=== PATIENT | male | born 1970 | race Caucasian/White ===

== ENCOUNTER 2017-01-14 13:48 | Observation (INO) | payer OTHER ==
[~2017-01-14] VITALS: Ht 182.9 cm; Wt 105.0 kg
[~2017-01-14 13:48] MED LIST: CLIN150 PO; SULF-154 PO; VALA500 PO
[2017-01-14 13:50] VITALS: BP 139/99; PULSE 103; RESP 20; TEMP 97.7; O2SAT 95
--- NOTE | 2017-01-14 14:18 | PD ---
HPI Chief Complaint: Chest Pain Time Seen by Provider: 14:17 Travel History International Travel<30 days: No Contact w/Intl Traveler<30days: No Traveled to known affect area: No History of Present Illness HPI 46-year-old male came to the emergency room with history of chest pain on the left side. Patient says the pain has been there for past 5 days. Current pain level is 5 out of 10. He says that the pain got really bad when he coughs deep. No history of worsening of the pain upon deep breaths. Describes the pain as a dull ache with no radiation. No history of fever. Vital signs are stable. His brother had a quadruple bypass 2 months ago. His brother is a year or 2 older than him. Patient smokes cigars. [facility] Past Medical History Narrative Medical List of his past medical, surgical, social or family history is reviewed from the nursing note. 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 Reported Meds & Prescriptions Reported Meds & Active Scripts Active Reported Hydrocodone-Acetaminophen 7.5-325 mg Tab 1 Tab PO TID PRN Narrative Medication List of his home medications reviewed from the nursing note. Review of Systems Except as stated in HPI: all other systems reviewed are Neg Physical Exam Narrative GENERAL: Awake, alert, moderate distress SKIN: Warm and dry. HEAD: Atraumatic. Normocephalic. EYES: Pupils equal and round. No scleral icterus. No injection or drainage. ENT: No nasal bleeding or discharge. Mucous membranes pink and moist. NECK: Trachea midline. No JVD. CARDIOVASCULAR: Regular rate and rhythm. No murmur appreciated. RESPIRATORY: No accessory muscle use. Clear to auscultation. Breath sounds equal bilaterally. GASTROINTESTINAL: Abdomen soft, non-tender, nondistended. Hepatic and splenic margins not palpable. MUSCULOSKELETAL: No obvious deformities. No clubbing. No cyanosis. No edema. NEUROLOGICAL: Awake and alert. No obvious cranial nerve deficits. Motor grossly within normal limits. Normal speech. PSYCHIATRIC: Appropriate mood and affect; insight and judgment normal. Data Data Last Documented VS Vital Signs Date Time Temp Pulse Resp B/P Pulse Ox O2 Delivery O2 Flow Rate FiO2 01/14/17 18:34 18 01/14/17 17:12 72 139/96 99 Room Air 01/14/17 13:50 97.7 Orders Electrocardiogram (01/14/17 ) Basic Metabolic Panel (Bmp) (01/14/17 14:28) Ckmb (Isoenzyme) Profile (01/14/17 14:28) Complete Blood Count With Diff (01/14/17 14:28) D-Dimer (01/14/17 14:28) Magnesium (Mg) (01/14/17 14:28) Prothrombin Time / Inr (Pt) (01/14/17 14:28) Act Partial Throm Time (Ptt) (01/14/17 14:28) Troponin I (01/14/17 14:28) Chest, Single Ap (01/14/17 14:28) Ecg Monitoring (01/14/17 14:28) Bilateral Bp Monitoring (01/14/17 14:28) Iv Access Insert/Monitor (01/14/17 14:28) Oximetry (01/14/17 14:28) Oxygen Administration (01/14/17 14:28) Sodium Chloride 0.9% Flush (Ns Flush) (01/14/17 14:30) Aspirin Chew (Aspirin Chew) (01/14/17 14:45) Morphine Inj (Morphine Inj) (01/14/17 14:45) Ketorolac Inj (Toradol Inj) (01/14/17 17:30) Ct Pulmonary Angiogram (01/14/17 ) Nitroglycerin Sl (Nitrostat Sl) (01/14/17 18:45) Iohexol 350 Inj (Omnipaque 350 Inj) (01/14/17 19:07) Admit Order (Ed Use Only) (01/14/17 19:30) Labs Laboratory Tests Test 01/14/17 17:05 White Blood Count 6.5 TH/MM3 Red Blood Count 5.01 MIL/MM3 Hemoglobin 16.3 GM/DL Hematocrit 46.5 % Mean Corpuscular Volume 92.9 FL Mean Corpuscular Hemoglobin 32.6 PG Mean Corpuscular Hemoglobin 35.0 % Concent Red Cell Distribution Width 14.1 % Platelet Count 138 TH/MM3 Mean Platelet Volume 10.2 FL Neutrophils (%) (Auto) 54.8 % Lymphocytes (%) (Auto) 32.4 % Monocytes (%) (Auto) 9.6 % Eosinophils (%) (Auto) 2.4 % Basophils (%) (Auto) 0.8 % Neutrophils # (Auto) 3.6 TH/MM3 Lymphocytes # (Auto) 2.1 TH/MM3 Monocytes # (Auto) 0.6 TH/MM3 Eosinophils # (Auto) 0.2 TH/MM3 Basophils # (Auto) 0.0 TH/MM3 CBC Comment DIFF FINAL Differential Comment Prothrombin Time 10.0 SEC Prothromb Time International 0.9 RATIO Ratio Activated Partial 25.4 SEC Thromboplast Time D-Dimer Quantitative (PE/DVT) 0.52 MG/L FEU Sodium Level 141 MEQ/L Potassium Level 4.4 MEQ/L Chloride Level 103 MEQ/L Carbon Dioxide Level 28.7 MEQ/L Anion Gap 9 MEQ/L Blood Urea Nitrogen 15 MG/DL Creatinine 0.98 MG/DL Estimat Glomerular Filtration 82 ML/MIN Rate Random Glucose 94 MG/DL Calcium Level 8.9 MG/DL Magnesium Level 2.4 MG/DL Total Creatine Kinase 68 U/L Troponin I LESS THAN 0.02 NG/ML MDM Medical Decision Making Medical Screen Exam Complete: Yes Emergency Medical Condition: Yes Medical Record Reviewed: Yes Interpretation(s) Twelve-lead EKG was reviewed by me. Normal sinus rhythm, normal axis, nonspecific ST-T wave changes. Rate of 80 bpm. Differential Diagnosis ACS, non-STEMI, nonspecific chest pain, musculoskeletal pain Narrative Course 4:23 PM awaiting for the blood test results. Chest x-rays done and within normal limits. Patient was given 2 baby aspirin's. Given the risk factor of smoking and family history I have expressed to him my concern from cardiac disease standpoint. Even if his blood test is negative he'll be admitted to the chest pain center for stress test. 5:40 PM patient occasionally while to send the blood test. Awaiting for the blood test result. I did discuss with the patient about him staying in the chest pain center to rule out ACS if everything is within normal limits. He understands. Case was signed over to the oncoming ER physician. Procedures EKG Prior to Arrival: No Scripts Azithromycin (Zithromax Z-Luis Daniel)250 Mg [id number] Mg PO DIRECTED #1 DSPK Ref 0 500 MG (2 tabs) day 1, then 1 tab days 2-5. Prov:Bradford Palma 01/15/17 Yudelka Castellanos MD Jan 14, 2017 14:18
[2017-01-14] MEDS ORDERED: SODIUM CHLORIDE 0.9% FLUSH 5 ML FLUSH IVF PRN ×2 (14:30→21:15)
[2017-01-14] MEDS ORDERED: MORPHINE SULFATE 4 MG/ML INJ IV PUSH ONE ×2 (14:45→22:15)
[2017-01-14] MEDS ORDERED: ASPIRIN 81 MG CHEW TAB CHEW ONE (14:45)
[2017-01-14 14:53] VITALS: BP_SYST 131; BP_SYST 132; BP_DIAS 81; BP_DIAS 86
--- NOTE | 2017-01-14 14:58 | RADRPT ---
EXAM DATE/TIME: 01/14/2017 14:35 [facility] COMPARISON: No previous studies available for comparison. INDICATIONS : Shortness of breath. MEDICAL HISTORY : None. SURGICAL HISTORY : None. ENCOUNTER: Initial ACUITY: 4 - 6 days PAIN SCORE: 0/10 LOCATION: Bilateral chest FINDINGS: A single view of the chest demonstrates the lungs to be symmetrically aerated without evidence of mas s, infiltrate or effusion. The cardiomediastinal contours are unremarkable. Osseous structures are intact. CONCLUSION: No evidence of acute cardiopulmonary disease. Felipe Selby MD on January 14, 2017 at 14:56 Board Certified Radiologist. This report was verified electronically.
[2017-01-14 15:08] VITALS: RESP 20; O2SAT 98
[2017-01-14 17:12] VITALS: BP 139/96; PULSE 72; RESP 20; O2SAT 99
[2017-01-14 17:20] LABS: AUTOMATED NEUTROPHIL # 3.6 TH/MM3 (1.8-7.7); BASOPHIL % 0.8 % (0.0-2.0); EOSINOPHIL # 0.2 TH/MM3 (0-0.4); EOSINOPHIL % 2.4 % (0.0-4.0); HEMATOCRIT 46.5 % (39.0-51.0); HEMO FLAGS DIFF FINAL; LYMPH % 32.4 % (9.0-44.0); LYMPHOCYTE # 2.1 TH/MM3 (1.0-4.8); MEAN CELL VOLUME 92.9 FL (80.0-100.0); MEAN CORPUSCULAR HEMOGLOBIN 32.6 PG (27.0-34.0); MONO % 9.6 % (0.0-8.0); NEUT % 54.8 % (16.0-70.0); PLATELET COUNT 138 TH/MM3 (150-450); RED BLOOD COUNT 5.01 MIL/MM3 (4.50-5.90); RED CELL DISTRIBUTION WIDTH 14.1 % (11.6-17.2); WHITE BLOOD COUNT 6.5 TH/MM3 (4.0-11.0)
[2017-01-14] MEDS ORDERED: KETOROLAC TROMETHAMINE 30 MG/ML (IVP) VIAL IV PUSH ONE (17:30)
[2017-01-14 17:33] LABS: APTT (PATIENT) 25.4 SEC (24.3-30.1); INTERNATIONAL NORMALIZED RATIO 0.9 RATIO
[2017-01-14 17:48] LABS: ANION GAP 9 MEQ/L (5-15); BICARBONATE 28.7 MEQ/L (21.0-32.0); BLOOD UREA NITROGEN 15 MG/DL (7-18); CHLORIDE 103 MEQ/L (98-107); GLOMERULAR FILTRATION RATE 82 ML/MIN (>89); MAGNESIUM 2.4 MG/DL (1.5-2.5); POTASSIUM 4.4 MEQ/L (3.5-5.1); SODIUM (NA) 141 MEQ/L (136-145)
[2017-01-14 17:57] LABS: CREATINE KINASE 68 U/L (39-308)
[2017-01-14] MEDS ORDERED: HYDR-3580 PO (18:04)
--- NOTE | 2017-01-14 18:19 | PD ---
Physical Exam Narrative Received sign out from previous team to follow up labs and admit to chest pain center. 46yo M with left sided chest pain for 5 days. +SOB. Pt has not had any similar chest pain or sob before. Labs reviewed, no leukocytosis. Mild thrombocytopenia. Troponin negative. D-dimer is elevated at 0.52. Pt denies any history of PE/DVT, recent surgery or immobilization. CT angio ordered to r/ o PE. CXR negative. CT angio showed no PE but a 6mm lung nodule on right lung. Informed pt to follow up with outpatient CT scan in 6 months. Also showed ground glass opacity that may be pneumonitis. Instructed pt to inform PMD for pulmonary follow up. Pt denies smoking cig but is a cigar smoker. 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 Pt has not had similar chest pain or recent work up for chest pain. Pt will be admitted to chest pain center for serial EKG and cardiac enzyme. Pt agreed with plan. Data Data Last Documented VS Vital Signs Date Time Temp Pulse Resp B/P Pulse Ox O2 Delivery O2 Flow Rate FiO2 01/14/17 18:34 18 01/14/17 17:12 72 139/96 99 Room Air 01/14/17 13:50 97.7 Orders Electrocardiogram (01/14/17 ) Basic Metabolic Panel (Bmp) (01/14/17 14:28) Ckmb (Isoenzyme) Profile (01/14/17 14:28) Complete Blood Count With Diff (01/14/17 14:28) D-Dimer (01/14/17 14:28) Magnesium (Mg) (01/14/17 14:28) Prothrombin Time / Inr (Pt) (01/14/17 14:28) Act Partial Throm Time (Ptt) (01/14/17 14:28) Troponin I (01/14/17 14:28) Chest, Single Ap (01/14/17 14:28) Ecg Monitoring (01/14/17 14:28) Bilateral Bp Monitoring (01/14/17 14:28) Iv Access Insert/Monitor (01/14/17 14:28) Oximetry (01/14/17 14:28) Oxygen Administration (01/14/17 14:28) Sodium Chloride 0.9% Flush (Ns Flush) (01/14/17 14:30) Aspirin Chew (Aspirin Chew) (01/14/17 14:45) Morphine Inj (Morphine Inj) (01/14/17 14:45) Ketorolac Inj (Toradol Inj) (01/14/17 17:30) Ct Pulmonary Angiogram (01/14/17 ) Nitroglycerin Sl (Nitrostat Sl) (01/14/17 18:45) Iohexol 350 Inj (Omnipaque 350 Inj) (01/14/17 19:07) Admit Order (Ed Use Only) (01/14/17 19:30) Labs Laboratory Tests Test 01/14/17 17:05 White Blood Count 6.5 TH/MM3 Red Blood Count 5.01 MIL/MM3 Hemoglobin 16.3 GM/DL Hematocrit 46.5 % Mean Corpuscular Volume 92.9 FL Mean Corpuscular Hemoglobin 32.6 PG Mean Corpuscular Hemoglobin 35.0 % Concent Red Cell Distribution Width 14.1 % Platelet Count 138 TH/MM3 Mean Platelet Volume 10.2 FL Neutrophils (%) (Auto) 54.8 % Lymphocytes (%) (Auto) 32.4 % Monocytes (%) (Auto) 9.6 % Eosinophils (%) (Auto) 2.4 % Basophils (%) (Auto) 0.8 % Neutrophils # (Auto) 3.6 TH/MM3 Lymphocytes # (Auto) 2.1 TH/MM3 Monocytes # (Auto) 0.6 TH/MM3 Eosinophils # (Auto) 0.2 TH/MM3 Basophils # (Auto) 0.0 TH/MM3 CBC Comment DIFF FINAL Differential Comment Prothrombin Time 10.0 SEC Prothromb Time International 0.9 RATIO Ratio Activated Partial 25.4 SEC Thromboplast Time D-Dimer Quantitative (PE/DVT) 0.52 MG/L FEU Sodium Level 141 MEQ/L Potassium Level 4.4 MEQ/L Chloride Level 103 MEQ/L Carbon Dioxide Level 28.7 MEQ/L Anion Gap 9 MEQ/L Blood Urea Nitrogen 15 MG/DL Creatinine 0.98 MG/DL Estimat Glomerular Filtration 82 ML/MIN Rate Random Glucose 94 MG/DL Calcium Level 8.9 MG/DL Magnesium Level 2.4 MG/DL Total Creatine Kinase 68 U/L Troponin I LESS THAN 0.02 NG/ML MDM Supervised Visit with ONEL: No Diagnosis Primary Impression: Chest pain Qualified Code: R07.9 - Chest pain, unspecified type Admitting Information Admitting Physician Requests: Chelsea Camarillo 12, 2017 18:19
[2017-01-14] MEDS ORDERED: NITROGLYCERIN 0.4 MG SL 25 TABS/BTL SL ONE (18:45)
[2017-01-14] MEDS ORDERED: IOHEXOL 350 MG/ML 10 ML VIAL (for RAD DIAG) IV ONE (19:07)
--- NOTE | 2017-01-14 19:18 | RADRPT ---
EXAM DATE/TIME: 01/14/2017 18:59 [facility] COMPARISON: No previous studies available for comparison. INDICATIONS : Chest pain for five days. IV CONTRAST: 65 cc Omnipaque 350 (iohexol) IV RADIATION DOSE: 23.74 CTDIvol (mGy) MEDICAL HISTORY : None SURGICAL HISTORY : None. ENCOUNTER: Initial ACUITY: 4 - 6 days PAIN SCALE: 5/10 LOCATION: Bilateral chest TECHNIQUE: Volumetric scanning of the chest was performed using a pulmonary embolism protocol MIP images were re constructed. Using automated exposure control and adjustment of the mA and/or kV according to patien t size, radiation dose was kept as low as reasonably achievable to obtain optimal diagnostic quality images. FINDINGS: PULMONARY ARTERIES: No filling defects are seen in the pulmonary arteries through the segmental level. LUNGS: Diffuse mild groundglass opacities. There is a 6 mm nodule in the anterior segment of the right upper lobe. PLEURAE: There is no pleural thickening or pleural effusion. MEDIASTINUM: There is good visualization of the great vessels of the middle mediastinum. No evidence of mediastin al or hilar adenopathy/mass. MUSCULOSKELETAL: Within normal limits for patient age. MISCELLANEOUS: The visualized upper abdominal organs demonstrate no acute abnormality. CONCLUSION: 1. No pulmonary embolus. 2. Diffuse groundglass opacities of both lungs, nonspecific but a low-grade pneumonitis would be in t he differential. 3. 6 mm indeterminate nodule of the right midlung. 6 month followup noncontrast chest CT is recommend ed for recheck. Felipe Selby MD on January 14, 2017 at 19:15 Board Certified Radiologist. This report was verified electronically.
[2017-01-14 19:45] VITALS: BP 139/79; PULSE 69; RESP 24; TEMP 97.7; O2SAT 97
[2017-01-14 21:16] VITALS: BP 144/71; PULSE 68; RESP 22; O2SAT 98
[2017-01-14 22:44] LABS: CREATINE KINASE 55 U/L (39-308)
[2017-01-15 00:11] VITALS: BP 140/81; PULSE 61; RESP 21; TEMP 97.8; O2SAT 98
[2017-01-15 00:17] LABS: CREATINE KINASE 60 U/L (39-308)
[2017-01-15 06:51] VITALS: PULSE 65
[2017-01-15 08:03] VITALS: BP 143/85; PULSE 63; RESP 14; TEMP 97.6; O2SAT 94
[2017-01-15] MEDS ORDERED: RESP: ALBUTEROL 2.5 MG/IPRATROPIUM 0.5 MG NEB (PRN) INH (08:30)
[2017-01-15] MEDS ORDERED: RESP: ALBUTEROL 2.5 MG/IPRATROPIUM 0.5 MG NEB (SCH) INH ONE (08:30)
[2017-01-15 08:57] VITALS: O2SAT 95
[2017-01-15] MEDS ORDERED: SODIUM CHLORIDE 0.9% FLUSH 5 ML FLUSH IVF SCH (09:00)
[2017-01-15] MEDS ORDERED: KETOROLAC TROMETHAMINE 30 MG/ML (IVP) VIAL IVP ONE (09:00)
--- NOTE | 2017-01-15 09:29 | HHI.HP ---
[facility] Primary Care Physician Edis Howard Jr, MD Chief Complaint Chest pain History of Present Illness This is a 46-year-old male that presents to ED via private vehicle complaining of 5 days a constant central chest discomfort. Describes it as an ache. He states that when he coughs the pain intensifies as a sharp discomfort. It also is worsened when he tries to lean forward. He states he is also had a cough for 5 days. The first couple days had a whitish colored mucus but has since been nonproductive. Denies fevers or chills. States his brother had a bypass at a similar age. Patient himself denies history of CAD but states his never had a stress test. Denies shortness, nausea, and diaphoresis with the symptoms. Denies recent travel. Works as a flux core welder. Review of Systems General: Patient denies fevers, chills recent, and recent travel HEENT: Patient denies headache, sore throat, difficulty swallowing. Cardiovascular: Has the chest discomfort as mentioned above. Denies sensation of heart beating rapidly or irregularly. No syncope. Respiratory: Denies shortness of breath or inspirational chest discomfort. Denies coughing wheezing or hemoptysis. Patient has had a cough. GI: Patient denies nausea, vomiting, diarrhea, abdominal pain, bloody stools. Musculoskeletal: Patient denies joint pain or edema. Denies calf pain or edema. Neurovascular: Patient denies numbness, tingling, weakness in extremities. Denies headache. Endocrine: Denies polyuria and polydipsia. Hematologic: Denies easy bruising. Skin: Denies rash or itching. Past Family Social History Allergies: Coded Allergies: No Known Allergies (Verified , 01/14/17) Past Medical History Denies hypertension, hyperlipidemia, diabetes, and CAD. Past Surgical History Noncontributory. Reported Medications Reported Meds & Active Scripts Active Reported Hydrocodone-Acetaminophen 7.5-325 mg Tab 1 Tab PO TID PRN Active Ordered Medications Current Medications Medications (Trade) Dose Ordered Sig/Rosa Route Start Time Stop Time Status Last Admin (NS Flush) 2 ml UNSCH PRN IVF 01/14/17 14:30 (NS Flush) 2 ml UNSCH PRN IVF 01/14/17 21:15 (NS Flush) 2 ml BID IVF 01/15/17 09:00 Family History His brother had a CABG at a similar age. Social History Patient has smoked about 10 cigars a day for 5 years. Physical Exam Vital Signs Vital Signs Date Time Temp Pulse Resp B/P Pulse Ox O2 Delivery O2 Flow Rate FiO2 01/15/17 08:03 97.6 63 14 143/85 94 01/15/17 06:51 65 01/15/17 02:46 20 01/15/17 00:11 97.8 61 21 140/81 98 01/14/17 21:16 68 22 144/71 98 Room Air 01/14/17 19:45 97.7 69 24 139/79 97 01/14/17 18:34 18 01/14/17 17:12 72 20 139/96 99 Room Air 01/14/17 15:08 98 Room Air 01/14/17 15:08 20 98 Room Air 01/14/17 14:58 20 01/14/17 14:53 131/86 132/81 01/14/17 13:50 97.7 103 20 139/99 95 Room Air Physical Exam GENERAL: This is a well-nourished, well-developed patient, in no apparent distress. Patient speaks in clear complete sentences. Patient is pleasant. HEENT: Head is atraumatic and normocephalic. Neck is supple without lymphadenopathy and trachea is midline. No JVD or carotid bruits. CARDIOVASCULAR: Regular rate and rhythm without murmurs, gallops, or rubs. RESPIRATORY: Mild bilateral scattered wheezing. No rales or rhonchi. No use of accessory muscles. Chest wall tenderness is easily reproducible worsened when palpating the chest wall. This is a same discomfort and is being worsened. GASTROINTESTINAL: Abdomen is nontender, nondistended. Abdomen soft. No obvious pulsatile mass or bruit. No CVA tenderness. Strong femoral pulses bilaterally. Normal bowel sounds in all quadrants. MUSCULOSKELETAL: Patient is moving upper and lower extremities freely. No calf tenderness or edema, no Homans sign. Strong pulses in upper and lower extremities. NEUROLOGICAL: Patient is alert and oriented. Cranial nerves 2-12 are grossly intact. No focal deficits and speech is clear. SKIN: No rash and turgor is normal. Laboratory Laboratory Tests Test 01/14/17 01/14/17 01/14/17 17:05 21:15 23:30 White Blood Count 6.5 Red Blood Count 5.01 Hemoglobin 16.3 Hematocrit 46.5 Mean Corpuscular Volume 92.9 Mean Corpuscular Hemoglobin 32.6 Mean Corpuscular Hemoglobin 35.0 Concent Red Cell Distribution Width 14.1 Platelet Count 138 Mean Platelet Volume 10.2 Neutrophils (%) (Auto) 54.8 Lymphocytes (%) (Auto) 32.4 Monocytes (%) (Auto) 9.6 Eosinophils (%) (Auto) 2.4 Basophils (%) (Auto) 0.8 Neutrophils # (Auto) 3.6 Lymphocytes # (Auto) 2.1 Monocytes # (Auto) 0.6 Eosinophils # (Auto) 0.2 Basophils # (Auto) 0.0 CBC Comment DIFF FINAL Differential Comment Prothrombin Time 10.0 Prothromb Time International 0.9 Ratio Activated Partial 25.4 Thromboplast Time D-Dimer Quantitative (PE/DVT) 0.52 Sodium Level 141 Potassium Level 4.4 Chloride Level 103 Carbon Dioxide Level 28.7 Anion Gap 9 Blood Urea Nitrogen 15 Creatinine 0.98 Estimat Glomerular Filtration 82 Rate Random Glucose 94 Calcium Level 8.9 Magnesium Level 2.4 Total Creatine Kinase 68 55 60 Troponin I LESS THAN 0.02 LESS THAN 0.02 LESS THAN 0.02 Result Diagram: 01/14/17 1705 01/14/17 1705 Imaging Single view chest x-ray reveals nothing acute. A CTA of the chest has been read by the radiologist. No PE. There is diffuse groundglass opacities of both lungs, nonspecific but low-grade pneumonitis could be in the differential. There is a 6 mm lung nodule right middle lobe that will need a CT follow-up in 6 months. Course EKGs have sinus rhythm without significant ST segment depressions or elevations. Assessment and Plan Assessment and Plan * Chest pain: Patient's symptoms are atypical. We will give him Toradol. He will be seen by Dr. Caba of cardiology and the chest pain center. He will undergo a Feliberto protocol ETT in about be nonischemic will be discharged home with instructions to follow-up with local physician. He will be given antibiotics. * Lung nodule: Patient with CT scan follow-up in 6 months. * Tobacco abuse: Patient has been counseled on the importance of smoking cessation. Bradford Palma Jan 15, 2017 09:29
[2017-01-15] MEDS ORDERED: ZITHTAB PO (09:54)
--- NOTE | 2017-01-15 09:56 | HHI.DCPOC ---
Discharge Care Plan Diagnosis: (1) Chest pain, atypical (2) Lung nodule seen on imaging study (3) Tobacco abuse Goals to Promote Your Health Discuss with your primary care physician the need to have repeat ct of the lungs to reevaluate lung nodule. Will need repeated in 6 months. * To prevent worsening of your condition and complications * To maintain your health at the optimal level Directions to Meet Your Goals Take your medications as prescribed Follow your dietary instruction Follow activity as directed Keep your appointments as scheduled Take your immunizations and boosters as scheduled If your symptoms worsen call your PCP, if no PCP go to Urgent Care Center or Emergency Room Smoking is Dangerous to Your Health. Avoid second hand smoke Call the 24-hour hour crisis hotline for domestic abuse at Bradford Palma Jan 15, 2017 09:56
[2017-01-15 11:08] VITALS: BP 133/77; PULSE 71; RESP 16; TEMP 97.6; O2SAT 95
--- NOTE | 2017-01-15 11:46 | TR ---
Date Performed: 01/15/2017 Time Performed: 09:20:59 DOCTOR: Grady Caba DRUG LIST: CLINICAL HISTORY: REASON FOR TEST: REASON FOR ENDING: OBSERVATION: CONCLUSION: GRAHAM PROTOCOL. THE CONSTANT CHEST PAIN DID NOT WORSEN.TEST STOPPED AFTER EXCEEDING GOAL HR SECONDARY TO SOB AND LEG FATIGUE.Maximum FS=640 % Max HR Achieved=87.0% Maximum CI=310/80 Tot al Exercise Time=10:03 COMMENTS: Conclusion: Normal treadmill exercise. No evidence of ischemia.
[2017-01-15 12:58] VITALS: PULSE 61
--- NOTE | 2017-01-15 14:16 | EKG ---
Date Performed: 01/14/2017 Time Performed: 19:17:31 PTAGE: 46 years EKG: Sinus rhythm NORMAL ECG PREVIOUS TRACING : 01/14/2017 12.25 Since previous tracing, no significant change noted DOCTOR: Grady Caba Interpretating Date/Time 01/15/2017 14:16:05
--- NOTE | 2017-01-15 14:16 | EKG ---
Date Performed: 01/14/2017 Time Performed: 23:47:30 PTAGE: 46 years EKG: Sinus rhythm NORMAL ECG PREVIOUS TRACING : 01/14/2017 12.25 Since previous tracing, no significant change noted DOCTOR: Grady Caba Interpretating Date/Time 01/15/2017 14:15:37
--- NOTE | 2017-01-15 14:21 | EKG ---
Date Performed: 01/14/2017 Time Performed: 12:25:30 PTAGE: 46 years EKG: Sinus rhythm NORMAL ECG NO PREVIOUS TRACING DOCTOR: Grady Caba Interpretating Date/Time 01/15/2017 14:19:37
== END 2017-01-15 13:13 | disposition home or self-care (01) ==
LOC: NEPA 13:48 → NEDA 19:31 → NEPGCP 23:00
DX: R07.89 Other chest pain (principal); R91.1 Solitary pulmonary nodule; M47.819 Spondylosis without myelopathy or radiculopathy, site unspecified; Z71.6 Tobacco abuse counseling; F17.210 Nicotine dependence, cigarettes, uncomplicated; Z82.49 Family history of ischemic heart disease and other diseases of the circulatory system
CPT/HCPCS: 71010; 71275; 80048; 82550; 83735; 84484; 85025; 85379; 85610; 85730; 93005; 93017; 94664; 96374; 96375; 99285; G0378; J1885; J2270; Q9967